=== PATIENT | female | born 1930 | race American Indian/Alaskan Native ===

== ENCOUNTER 2017-05-15 17:25 | Emergency (ER) | payer MEDICARE ==
[2017-05-15 17:25] VITALS: BMI 20.9
[2017-05-15 17:32] VITALS: O2SAT 100
--- NOTE | 2017-05-15 19:08 | C.PDOC ---
History Of Present Illness Patient presents to the ER with a complaint of intermittent leg swelling for the past few days. Patient is speaking in complete sentences; denies fever, chills, nausea, vomiting, SOB, chest pain, or trauma. Time Seen by Provider: 05/15/17 19:07 Chief Complaint (Nursing): Lower Extremity Problem/Injury History Per: Patient History/Exam Limitations: no limitations Onset/Duration Of Symptoms: Days, Intermittent Episodes Current Symptoms Are (Timing): Still Present Severity: Mild Pain Scale Rating Of: 2 Recent travel outside of the [place]: No Additional History Per: Family Past Medical History Reviewed: Historical Data, Nursing Documentation, Vital Signs Vital Signs: Last Vital Signs Temp 97.8 F 05/15/17 17:28 Pulse 88 05/15/17 17:28 Resp 20 05/15/17 17:28 BP 178/95 H 05/15/17 17:28 Pulse Ox 100 05/15/17 20:02 - Medical History PMH: Alzheimer's Disease (Questionable ), Anemia, Arthritis, Diverticulitis, Gastritis, GERD, HTN Denies: Chronic Kidney Disease - [facility] Procedures COLONOSCOPY (09/05/13) ESOPHAGOGASTRODUODENOSCOPY [EGD] W/CLOSED BIOPSY (09/05/13) Family History: States: No Known Family Hx - Social History Hx Tobacco Use: No Hx Alcohol Use: No Hx Substance Use: No - Immunization History Hx Tetanus Toxoid Vaccination: No Hx Influenza Vaccination: No Hx Pneumococcal Vaccination: No Review Of Systems Constitutional: Negative for: Fever, Chills Cardiovascular: Negative for: Chest Pain Respiratory: Negative for: Shortness of Breath Gastrointestinal: Negative for: Nausea, Vomiting Musculoskeletal: Positive for: Other (Leg swelling) Physical Exam - Physical Exam Appears: Non-toxic Skin: Warm, Dry Head: Normacephalic Eye(s): bilateral: Other (Cataracts, left more pronounced) Oral Mucosa: Moist Neck: Supple Chest: Symmetrical, No Tenderness Cardiovascular: Rhythm Regular Respiratory: No Rales, No Rhonchi, No Wheezing Gastrointestinal/Abdominal: Soft, No Tenderness Back: No CVA Tenderness Extremity: Pedal Edema (Bilateral) Extremity: Bilateral: Atraumatic Pulses: Left Dorsalis Pedis: Normal, Right Dorsalis Pedis: Normal Neurological/Psych: Oriented x3 Gait: Steady ED Course And Treatment - Laboratory Results Result Diagrams: 05/15/17 19:20 05/15/17 19:20 ECG: Interpreted By Me ECG Rhythm: Sinus Rhythm (81), Nonspecific Changes O2 Sat by Pulse Oximetry: 100 (Room air) Pulse Ox Interpretation: Normal - Radiology CXR: Interpreted by Me CXR Interpretation: No: Infiltrates, Fracture, Pnemothorax Progress Note: Blood work, CXR, EKG, and urinalysis ordered. Reevaluation Time: 20:31 Reassessment Condition: Improved Disposition Counseled Patient/Family Regarding: Studies Performed, Diagnosis, Need For Followup - Disposition Disposition: HOME/ ROUTINE Disposition Time: 19:08 Condition: FAIR Additional Instructions: Please follow up with your doctor. Also, please return on 05/16/17 in the morning to have an ultrasound of your legs Prescriptions: Ciprofloxacin [Cipro] 1 tab PO BID #14 tab Instructions: Dependent Edema (DC), Urinary Tract Infection, Adult (DC) Forms: [facility] (Kazakh) - Clinical Impression Clinical Impression: Leg edema, UTI (urinary tract infection) - Scribe Statement The provider has reviewed the documentation as recorded by the Scribe Fam Gilliam All medical record entries made by the Scribe were at my direction and personally dictated by me. I have reviewed the chart and agree that the record accurately reflects my personal performance of the history, physical exam, medical decision making, and the department course for this patient. I have also personally directed, reviewed, and agree with the discharge instructions and disposition.
[2017-05-15 19:26] LABS: BASO % 0.5 % (0.0-2.0); EOS # 0.1 K/uL (0.0-0.7); EOS % 1.4 % (0.0-4.0); HEMOGLOBIN 12.5 g/dL (11.0-16.0); LYMPH # 2.2 K/uL (1.0-4.3); MEAN CELL VOLUME 71.5 fL (81.0-99.0); MEAN CORPUSCULAR HGB CONC 30.8 g/dL (33.0-37.0); MEAN PLATELET VOLUME 8.8 fL (7.2-11.7); MONO # 0.4 K/uL (0.0-0.8); NEUT # 3.5 K/uL (1.8-7.0); NEUT % 56.1 % (50.0-75.0); NRBC % 0.1 % (0.0-2.0); RBC 5.69 Mil/uL (3.80-5.20); RED CELL DISTRIBUTION WIDTH 14.9 % (11.5-14.5); WHITE BLOOD COUNT 6.3 K/uL (4.8-10.8)
[2017-05-15 19:32] LABS: PROTHROMBIN TIME 11.2 SECONDS (9.7-12.2)
[2017-05-15 19:37] LABS: ALB/GLOB RATIO 0.9 (1.0-2.1); ALBUMIN 3.8 g/dL (3.5-5.0); ALT/SGPT 10 U/L (9-52); AST/SGOT 28 U/L (14-36); BLOOD UREA NITROGEN 8 mg/dL (7-17); GFR AFRICAN-AMERICAN > 60; GFR NON-AFRICAN AMERICAN > 60
[2017-05-15 19:49] LABS: B-TYPE NATRIURETIC PEPTIDE 619 pg/mL (0-900)
[2017-05-15 20:26] LABS: SQUAMOUS EPITHIAL 7 /hpf (0-5); URINE BACTERIA MANY (<OCC); URINE BILIRUBIN NEGATIVE (NEGATIVE); URINE BLOOD 1+ (NEGATIVE); URINE CLARITY Hazy (Clear); URINE COLOR Amber (YELLOW); URINE GLUCOSE (UA) NORMAL (Normal); URINE LEUKOCYTE ESTERASE 2+ Leu/uL (Negative); URINE PROTEIN NEGATIVE (NEGATIVE); URINE UROBILINOGEN NORMAL mg/dL (0.2-1.0)
[2017-05-15] MEDS ORDERED: Enoxaparin 40 mg Syringe SC STA (20:30)
[2017-05-15 20:34] VITALS: BP 157/91; PULSE 82; RESP 22; TEMP 97.7
[2017-05-15] MEDS ORDERED: Enoxaparin 60 mg Syringe ONE (20:43)
[2017-05-15] MEDS ORDERED: Enoxaparin 30 mg Syringe ONE (20:43)
--- NOTE | 2017-05-16 08:04 | RAD ---
Chest x-ray single frontal view History: Shortness of breath. Comparison: 01/31/2015 Findings: Mild venous congestion. Bilateral hilar prominence. Tortuous aorta. Top normal heart size. Degenerative changes in the spine and shoulders. Impression: Mild venous congestion. Bilateral hilar prominence. Tortuous aorta. Top normal heart size.
--- NOTE | 2017-05-16 13:29 | CARD ---
APPROVED REPORT EKG Measurement Heart [id number] <Conclusion> Normal sinus rhythm Septal infarct, age undetermined Abnormal ECG
== END 2017-05-15 21:02 | disposition home or self-care (01) ==
LOC: C.ER 17:25
DX: R60.0 Localized edema (principal); N39.0 Urinary tract infection, site not specified
CPT/HCPCS: 71045; 80053; 81001; 83880; 84484; 85025; 85610; 85730; 93005; 96372; 99285; J1650

== ENCOUNTER 2017-05-16 11:38 | Emergency (ER) | payer MEDICARE ==
[2017-05-16 11:38] VITALS: BMI 20.9
--- NOTE | 2017-05-16 14:17 | C.PDOC ---
History Of Present Illness 86-year-old female presents to the emergency department with complaints of leg swelling. She was seen reports she was seen int he ED last night for same, blood work was done and she was instructed to return today for venous doppler study to r/o DVT. Patients secondary complaint is ringing in her ears for many weeks. She denies falls/injuries, chest pain, palpitations, cough, fever, abdominal pain, ear pain, rash. Of note, patients urine showed UTI last night, and she was given Ciprofloxacin. Time Seen by Provider: 05/16/17 12:19 Chief Complaint (Nursing): Lower Extremity Problem/Injury History Per: Patient, Family (daughter at bedside ) Current Symptoms Are (Timing): Still Present Severity: Mild Past Medical History Reviewed: Historical Data, Nursing Documentation, Vital Signs Vital Signs: Last Vital Signs Temp 98 F 05/16/17 14:32 Pulse 89 05/16/17 14:32 Resp 18 05/16/17 14:32 BP 160/69 H 05/16/17 14:32 Pulse Ox 99 05/16/17 15:56 - Medical History PMH: Alzheimer's Disease (Questionable ), Anemia, Arthritis, Diverticulitis, Gastritis, GERD, HTN - [facility] Procedures COLONOSCOPY (09/05/13) ESOPHAGOGASTRODUODENOSCOPY [EGD] W/CLOSED BIOPSY (09/05/13) Family History: States: No Known Family Hx - Social History Hx Tobacco Use: No Hx Alcohol Use: No Hx Substance Use: No - Immunization History Hx Tetanus Toxoid Vaccination: No Hx Influenza Vaccination: No Hx Pneumococcal Vaccination: No Review Of Systems Except As Marked, All Systems Reviewed And Found Negative. Constitutional: Negative for: Fever, Chills ENT: Positive for: Other (ringing in ears) Cardiovascular: Negative for: Chest Pain, Palpitations Respiratory: Negative for: Shortness of Breath Gastrointestinal: Negative for: Vomiting Musculoskeletal: Positive for: Leg Pain (swelling) Neurological: Negative for: Weakness, Numbness Physical Exam - Physical Exam Appears: Well, Non-toxic, No Acute Distress, Other Skin: Normal Color, Warm, Dry, No Rash Eye(s): bilateral: Normal Inspection Ear(s): Bilateral: Normal, TM Obscured By Wax (No cerumen impaction) Oral Mucosa: Moist Neck: Normal, Normal ROM Cardiovascular: Rhythm Regular Respiratory: Normal Breath Sounds, No Rales, No Rhonchi, No Wheezing Gastrointestinal/Abdominal: Normal Exam, Bowel Sounds, Soft, No Tenderness (+ obese) Extremity: Pedal Edema (+2 pitting edema B/L LEs), No Calf Tenderness (No erythema), Capillary Refill (< 2 sec all digits ), No Deformity Pulses: Left Dorsalis Pedis: Normal, Right Dorsalis Pedis: Normal Neurological/Psych: Oriented x3, Normal Sensation ED Course And Treatment O2 Sat by Pulse Oximetry: 99 (RA) Pulse Ox Interpretation: Normal Progress Note: Venous doppler ordered and reviewed - negative for acute DVT. Patient discharged home with Rx for comprssions stockings. She was instructed to follow up with vascular surgeon and ENT within 1 week, and understands she should return to ED if symptoms worsen. Disposition Counseled Patient/Family Regarding: Studies Performed, Diagnosis, Need For Followup, Rx Given - Disposition Referrals: Ino Garcia MD [Medical Doctor] - Morgan Saldana MD [Staff Provider] - Harry Owens Jr., MD [Staff Provider] - Disposition: HOME/ ROUTINE Disposition Time: 14:15 Condition: STABLE Additional Instructions: FOLLOW UP WITH VASCULAR SURGERY AND ENT WITHIN 1 WEEK ELEVATE LEGS AND USE COMPRESSION STOCKINGS RETURN TO ER IF YOU HAVE ANY CONCERNING SYMPTOMS Prescriptions: Compression Socks, Medium [Futuro Restoring] 1 each MC DAILY #1 each Forms: [facility] (Djiboutian), General Discharge Instructions Print Language: KITTITIAN - Clinical Impression Clinical Impression: Leg edema, Tinnitus - Scribe Statement The provider has reviewed the documentation as recorded by the Scribe (Jonathan Clark) All medical record entries made by the Scribe were at my direction and personally dictated by me. I have reviewed the chart and agree that the record accurately reflects my personal performance of the history, physical exam, medical decision making, and the department course for this patient. I have also personally directed, reviewed, and agree with the discharge instructions and disposition.
[2017-05-16 14:32] VITALS: BP 160/69; PULSE 89; RESP 18; TEMP 98
[2017-05-16 15:18] VITALS: O2SAT 99
--- NOTE | 2017-05-19 08:45 | VASCLAB ---
PROCEDURE: Lower Extremity Venous Duplex Exam. HISTORY: B/O LEG SWELLING, R/O DVT PRIORS: None. TECHNIQUE: Bilateral common femoral, femoral, popliteal and posterior tibial, peroneal and great saphenous veins were evaluated. Flow was assessed with color Doppler, compressibility, assessment of phasic flow and augmentation response. Report prepared by Fam Jamil, AGUILA, RVT FINDINGS: RIGHT: 1. Common Femoral Vein: 1.1. Compressibility - Fully compressible: Thrombus - None : Flow - Phasic: Augmentation -Normal: Reflux - None. 2. Femoral Vein: 2.1. Compressibility - Fully compressible: Thrombus - None : Flow - Phasic: Augmentation -Normal: Reflux - None. 3. Popliteal Vein: 3.1. Compressibility - Fully compressible: Thrombus - None : Flow - Phasic: Augmentation -Normal: Reflux - Severe. 4. Posterior Tibial Vein: 4.1. Compressibility - Fully compressible: Thrombus - None: Flow - Phasic: Augmentation -Normal: Reflux - None. 5. Peroneal Vein: 5.1. Compressibility - Fully compressible: Thrombus - None: Flow - Phasic: Augmentation -Normal: Reflux - None. 6. Great Saphenous Vein: 6.1. Compressibility - Fully compressible: Thrombus - None: Flow - Phasic: Augmentation - Normal: Reflux - None. LEFT: 1. Common Femoral Vein: 1.1. Compressibility - Fully compressible: Thrombus - None: Flow - Phasic: Augmentation -Normal: Reflux - None. 2. Femoral Vein: 2.1. Compressibility - Fully compressible: Thrombus - None: Flow - Phasic: Augmentation -Normal: Reflux - None. 3. Popliteal Vein: 3.1. Compressibility - Fully compressible: Thrombus - None : Flow - Phasic: Augmentation -Normal: Reflux - None. 4. Posterior Tibial Vein: 4.1. Compressibility - Fully compressible: Thrombus - None: Flow - Phasic: Augmentation -Normal: Reflux - None. 5. Peroneal Vein: 5.1. Compressibility - Fully compressible: Thrombus - None: Flow - Phasic: Augmentation -Normal: Reflux - None. 6. Great Saphenous Vein: 6.1. Compressibility - Fully compressible: Thrombus - None: Flow - Phasic: Augmentation - Normal: Reflux - None. OTHER FINDINGS: Right: None significant. Left: None significant. IMPRESSION: Right: No evidence of deep or superficial vein thrombosis of the right lower extremity. 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 Left: No evidence of deep or superficial vein thrombosis of the left lower extremity. Normal valve function noted of the left side.
== END 2017-05-16 14:32 | disposition home or self-care (01) ==
LOC: C.ER 11:38
DX: R60.0 Localized edema (principal); H93.19 Tinnitus, unspecified ear; I10 Essential (primary) hypertension